=== PATIENT | male | born 1960 | race Caucasian/White ===

== ENCOUNTER 2017-10-19 09:21 | Emergency (ER) | payer OTHER ==
[~2017-10-19] VITALS: Ht 170.2 cm; Wt 79.4 kg
[2017-10-19] MEDS ORDERED: MORPHINE SULFATE INJ 4 MG/ML INJ IM PRN (09:45)
--- NOTE | 2017-10-19 11:24 | Diagnostic Imaging Report ---
PROCEDURE:X-RAY LEFT FOOT, COMPLETE COMPARISON:None. INDICATIONS:LEFT GREAT TOE TRAUMA FINDINGS: Severely comminuted fracture of the distal phalanx of the left great toe. There is also a mildly comminuted fracture of the distal phalanx of the second digit. The bones are well-mineralized. Soft tissue swelling of the first and second digits CONCLUSION: Comminuted fractures of the distal phalanges of the first and second digits. Dictated by: Malcolm Montemayor M.D. on 10/19/2017 at 11:09 Electronically approved by: Malcolm Montemayor M.D. on 10/19/2017 at 11:09
[2017-10-19] MEDS ORDERED: FENTANYL CITRATE/PF 100MCG/2 ML INJ IV ONE (11:45)
[2017-10-19] MEDS ORDERED: CEFAZOLIN SOD 1 GM/D5W 50ML 50 ML IV ONE (11:45)
[2017-10-19] MEDS ORDERED: CEFAZOLIN SOD 1 GM VIAL IV NR (11:45)
[2017-10-19] MEDS ORDERED: SODIUM CHLORIDE 0.9% 100 ML ONE (11:53)
[2017-10-19] MEDS ORDERED: BACITRACIN ZINC 0.9GM TP ONE (12:15)
[2017-10-19 12:33] VITALS: BP 110/78
[2017-10-21] MEDS ORDERED: AUGMENTIN 500-1 EACH PO (15:24)
[2017-10-21] MEDS ORDERED: TYLENOL WITH C1 EACH PO (15:25)
== END 2017-10-19 13:48 | disposition home or self-care (01) ==
LOC: ER 09:21
DX: S92.425B Nondisplaced fracture of distal phalanx of left great toe, initial encounter for open fracture (principal); S92.535B Nondisplaced fracture of distal phalanx of left lesser toe(s), initial encounter for open fracture; S91.202A Unspecified open wound of left great toe with damage to nail, initial encounter; W23.1XXA Caught, crushed, jammed, or pinched between stationary objects, initial encounter; W20.8XXA Other cause of strike by thrown, projected or falling object, initial encounter; Y99.0 Civilian activity done for income or pay
CPT/HCPCS: 12001; 73630; 99284; J0690; J2270; J7050

== ENCOUNTER 2017-10-24 05:10 | Observation (INO) | payer OTHER ==
[2017-10-24] VITALS (8 sets, daily range): BP systolic 122–130; BP diastolic 59–78
[~2017-10-24] VITALS: Ht 165.1 cm; Wt 79.8 kg
[~2017-10-24 05:10] MED LIST: AUGMENTIN 500-1 EACH PO; TYLENOL WITH C1 EACH PO
[2017-10-24] MEDS ORDERED: CEFAZOLIN SOD 2 GM/D5W 50ML 50 ML IV ONE (05:37)
[2017-10-24] MEDS ORDERED: BUPIVACAINE HCL 0.5% INJ 30 ML VIAL INJ ONE (06:21)
[2017-10-24] MEDS ORDERED: BACITRACIN 50,000 UNIT VIAL ONE (06:21)
[2017-10-24] MEDS ORDERED: DIPHENHYDRAMINE HCL INJ 50 MG/ML VIAL IM/IV PRN (08:30)
[2017-10-24] MEDS ORDERED: ONDANSETRON HCL INJ 2 MG/ML VIAL IV PRN (08:30)
[2017-10-24] MEDS: SODIUM CHLORIDE 0.9% 1000ML 1,000 ML IV SCH ×3 (10:03→21:02)
[2017-10-24] MEDS: HYDROCODONE/APAP 5MG-325MG TAB PO PRN ×3 (13:12→21:19)
[2017-10-24] MEDS ORDERED: CEFAZOLIN SOD 1 GM/D5W 50ML 50 ML IV SCH (14:00)
[2017-10-24] MEDS: CEFAZOLIN SOD 1 GM VIAL IV SCH ×2 (14:14→21:02)
--- NOTE | 2017-10-24 16:47 | Operative Report ---
DATE OF PROCEDURE: October 24, 2017 PREOPERATIVE DIAGNOSES 1. Grade 1 open left great toe fracture. 2. Distal phalanx fracture of the 2nd toe, left foot. POSTOPERATIVE DIAGNOSES 1. Grade 1 open left great toe fracture. 2. Distal phalanx fracture of the 2nd toe, left foot. PROCEDURES PERFORMED: Patient underwent an irrigation and debridement of the grade 1 open great toe distal phalanx fracture, percutaneous pinning of the great toe distal phalanx fracture, and a nail bed repair. 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 ANESTHESIA: General endotracheal intubation anesthesia. IV FLUIDS: Per anesthesia record. BRIEF DESCRIPTION OF OPERATIVE PROCEDURE: Mr. Arrieta was taken to the operating room and placed in supine position on the operating table. Following induction of general anesthesia as well as endotracheal intubation, the patient's left lower extremity was examined under anesthesia. He was found to have an injury to the distal aspect of the left foot. His great toe was found to be bruised, swollen, and ecchymotic. He had had a previous irrigation of his foot in an emergency room with several sutures placed to hold his great toe nail in place over the nail bed. His 2nd toe demonstrated a lesser degree of bruising and ecchymosis. Fluoroscopic evaluation of the patient's left foot demonstrated a comminuted fracture of the left great toe distal phalanx and a mild minimally displaced fracture of the 2nd toe distal phalanx. The patient's sutures that were placed in the emergency room were removed and the great toe nail was removed in the operating room prior to prepping and draping. The patient's left lower extremity was then prepped and draped in standard surgical fashion. The patient was found to have a roughly 2 cm laceration through the left great toe nail bed that exited the medial aspect of the paronychia. This area was copiously irrigated with Bacitracin laden normal saline. Devitalized tissue was also debrided at this time. Once the wound had been copiously irrigated, a 0.062 K-wire was inserted from distal to proximal transfixing the comminuted toe in as close to normal alignment as possible given the injury to stabilize the patient's nail bed. The nail bed was then repaired using a 6-0 chromic suture. The paronychia was closed using a 4-0 Monocryl suture. Sterile dressings were then applied and a well-padded splint was then placed over the patient's lower extremity protecting the forefoot. The patient was then awakened and taken to postanesthesia care unit in stable condition. Job#: [id number] LIZABETH
[2017-10-24] MEDS ORDERED: LIDOCAINE HCL 2% LOCAL INJ 5 ML SDV VIAL INJ ONE (17:29)
[2017-10-24] MEDS ORDERED: PROPOFOL IV EMULSION 10 MG/ML 20 ML VIAL ONE (17:29)
[2017-10-24] MEDS ORDERED: SEVOFLURANE INHAL SOLN 250 ML PEN BTL ONE (17:29)
[2017-10-24] MEDS ORDERED: ONDANSETRON HCL INJ 2 MG/ML VIAL ONE ×2 (17:29)
[2017-10-24] MEDS ORDERED: DEXAMETHASONE SOD PHOS INJ 4 MG/ML VIAL ONE (17:29)
[2017-10-24] MEDS ORDERED: KETOROLAC TROMETHAMINE 30 MG/ML VIAL ONE (17:29)
[2017-10-24] MEDS ORDERED: LIDOCAINE HCL 2% JELLY 5 ML TUBE ONE (17:29)
[2017-10-24] MEDS ORDERED: MIDAZOLAM HCL 2 MG/2 ML VIAL ONE (17:44)
[2017-10-24] MEDS ORDERED: FENTANYL CITRATE/PF 100MCG/2 ML INJ ONE (17:44)
[2017-10-25 00:54] VITALS: BP 119/60
[2017-10-25 04:41] VITALS: BP 108/55
[2017-10-25] MEDS: CEFAZOLIN SOD 1 GM VIAL IV SCH (05:26)
[2017-10-25] MEDS: HYDROCODONE/APAP 5MG-325MG TAB PO PRN (07:22)
[2017-10-25 08:00] VITALS: BP 121/68
== END 2017-10-25 10:51 | disposition home or self-care (01) ==
LOC: OR 05:10 → PACU V 08:29 → IMCU 09:44
PROVIDERS: ADMIT Specialist; ATTEND Specialist
DX: S92.422B Displaced fracture of distal phalanx of left great toe, initial encounter for open fracture (principal); S92.532A Displaced fracture of distal phalanx of left lesser toe(s), initial encounter for closed fracture; I73.9 Peripheral vascular disease, unspecified
CPT/HCPCS: 11010; 11760; 28899; 76000; 93005; 97116 ×2; 97161; G0378 ×2; G8978; G8979; J0690 ×2; J1100; J1885; J2001 ×2; J2250; J2405; J7030